=== PATIENT | male | born 1965 | race African-American/Black ===

== ENCOUNTER 2021-06-22 16:52 | Emergency (ER) | payer OTHER ==
[2021-06-22 18:08] VITALS: BP 136/83
[2021-06-22] MEDS ORDERED: traMADol 50 MG TAB PO ONE (18:20)
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
--- NOTE | 2021-06-22 19:20 | XRay Report ---
LEFT HAND 2 VIEW(S) INDICATION / CLINICAL INFORMATION: lt thumb trauma COMPARISON: None available. FINDINGS: BONES / JOINT(S): No acute fracture or subluxation. No significant arthritis. SOFT TISSUES: No significant abnormality. ADDITIONAL FINDINGS: None. Signer Name: Teresa Mancini MD Signed: 06/22/2021 7:16 PM Workstation Name: [id number]
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
== END 2021-06-22 20:30 | disposition home or self-care (01) ==
LOC: ED 16:52
DX: S69.92XA Unspecified injury of left wrist, hand and finger(s), initial encounter (principal); Z88.1 Allergy status to other antibiotic agents; Z88.6 Allergy status to analgesic agent; V89.2XXA Person injured in unspecified motor-vehicle accident, traffic, initial encounter; Y93.89 Activity, other specified; Y92.89 Other specified places as the place of occurrence of the external cause; Y99.8 Other external cause status
CPT/HCPCS: 99283